=== PATIENT | female | born 1985 | race Caucasian/White ===

== ENCOUNTER 2023-05-09 00:28 | Emergency (ER) | payer MEDICAID ==
[~2023-05-09] VITALS: Ht 165.1 cm; Wt 115.2 kg
[2023-05-09 00:51] VITALS: BP_SYST 137; PULSE 90; RESP 18; TEMP 97.9; O2SAT 98
--- NOTE | 2023-05-09 00:57 | NUR ---
Patient triaged and placed in waiting room. VSS and patient appears in no acute distress at this time. Accompanied by family, awaiting available bed, and MD notified of need for MSE.
--- NOTE | 2023-05-09 01:00 | NUR ---
FIRST CONTACT WITH PT. ASSESSMENT COMPLETED. AWAITING EVAL AND ORDERS.
--- NOTE | 2023-05-09 03:00 | NUR ---
PT RESTING WITH FAMIOLY AT BEDSIDE. NO ACUTE DISTRESS NOTED
[2023-05-09 03:21] LABS: BASOPHILS % (AUTO) 0.4 % (0.0-2.0); EOSINOPHILS # (AUTO) 0.4 K/uL (0.0-0.4); HEMATOCRIT 37.7 % (36-48); HEMOGLOBIN 12.9 g/dL (12.0-16.0); LYMPHOCYTES # (AUTO) 3.3 K/uL (1.0-5.5); LYMPHOCYTES % (AUTO) 30.3 % (20.5-51.5); MEAN CORPUSCULAR HEMOGLOBIN 30 pg (27-31); MEAN CORPUSCULAR HGB CONC 34 % (32-36); MEAN CORPUSCULAR VOLUME 88 fL (79.0-98.0); MONOCYTES % (AUTO) 9.5 % (1.7-9.3); NEUTROPHILS # (AUTO) 6.1 K/uL (1.8-7.7); NEUTROPHILS % (AUTO) 55.8 % (40.0-70.0); PLATELET COUNT (AUTO) 247 K/uL (130-430); RED BLOOD CELL COUNT(AUTO) 4.27 MIL/uL (4.2-6.2); RED CELL DISTRIBUTION WIDTH 13.6 % (9.0-15.0); WHITE BLOOD COUNT (AUTO) 10.9 K/uL (4.8-10.8)
[2023-05-09 03:38] LABS: CALCIUM 7.8 mg/dL (8.4-11.0); CREATININE 0.83 mg/dL (0.55-1.30)
[2023-05-09 03:39] LABS: INR 0.9 (0.8-1.2); PROTHROMBIN TIME 9.3 SECS (9.5-12.5)
[2023-05-09 03:43] LABS: TOTAL BILIRUBIN 0.2 mg/dL (0.0-1.0)
--- NOTE | 2023-05-09 05:00 | NUR ---
PT ASLEEP. NO SIGNS OF DISTRESS.
[2023-05-09 05:01] LABS: BILIRUBIN,URINE NEGATIVE (NEGATIVE); BLOOD, URINE NEGATIVE (NEGATIVE); CLARITY/URINE CLEAR (CLEAR); COLOR,URINE YELLOW (YELLOW); GLUCOSE,URINE NEGATIVE (NEGATIVE); KETONES,URINE NEGATIVE (NEGATIVE); LEUKOCYTE ESTERASE ,URINE NEGATIVE (NEGATIVE); NITRITE, URINE NEGATIVE (NEGATIVE); PROTEIN URINE NEGATIVE (NEGATIVE); UROBILINOGEN,URINE 0.2 (0.2-1.0)
[2023-05-09] MEDS ORDERED: IBUP-1969 PO (05:05)
[2023-05-09 05:58] VITALS: BP_SYST 132; PULSE 82; RESP 18; TEMP 97.9; O2SAT 97
--- NOTE | 2023-05-09 06:04 | NUR ---
Patient given written and verbal discharge instructions and verbalizes understanding. ER MD HUBER discussed with patient the results and treatment provided. Patient in stable condition. ID arm band removed. IV catheter removed intact and dressing applied, no active bleeding. Rx of NONE given. Patient educated on pain management and to follow up with PMD. Pain Scale 0. Opportunity for questions provided and answered. Medication side effect fact sheet provided.
== END 2023-05-09 06:04 | disposition home or self-care (01) ==
LOC: SED 00:28
DX: R22.43 Localized swelling, mass and lump, lower limb, bilateral (principal); M79.89 Other specified soft tissue disorders; Z72.0 Tobacco use; Z79.899 Other long term (current) drug therapy
CPT/HCPCS: 36415; 71045; 80053; 81003; 81025; 85025; 85610-TC; 99284

== ENCOUNTER 2023-06-30 00:10 | Emergency (ER) | payer MEDICAID ==
[~2023-06-30] VITALS: Ht 165.1 cm; Wt 108.9 kg
[~2023-06-30 00:10] MED LIST: IBUP-1969 PO
[2023-06-30 00:19] VITALS: BP_SYST 143; PULSE 97; RESP 20; TEMP 97.6; O2SAT 96
[2023-06-30] MEDS ORDERED: KETOROLAC TROMETHAMINE 60 MG/2 ML VIAL IM ONE (00:45)
[2023-06-30] MEDS ORDERED: TRAM50TA2 PO (00:54)
[2023-06-30] MEDS ORDERED: CLIN-142 PO (00:54)
[2023-06-30 01:09] VITALS: BP_SYST 169; PULSE 98; RESP 20; TEMP 97.7; O2SAT 98
== END 2023-06-30 01:09 | disposition home or self-care (01) ==
LOC: SED 00:10
DX: L03.211 Cellulitis of face (principal); K08.89 Other specified disorders of teeth and supporting structures; R10.2 Pelvic and perineal pain; F17.200 Nicotine dependence, unspecified, uncomplicated; Z79.899 Other long term (current) drug therapy
CPT/HCPCS: 99283; 96372; J1885